=== PATIENT | female | born 2000 | race Caucasian/White ===

== ENCOUNTER 2022-10-19 11:06 | Emergency (ER) | payer MEDICAID, OTHER | END 2022-10-19 11:48 | disposition home or self-care (01) | LOC: ERS 11:06 | DX: S01.81XA Laceration without foreign body of other part of head, initial encounter (principal); R56.9 Unspecified convulsions; W18.30XA Fall on same level, unspecified, initial encounter | CPT/HCPCS: 12011; 93005 ==